=== PATIENT | male | born 1975 | race Caucasian/White ===

== ENCOUNTER 2025-06-25 10:06 | Outpatient (AMB) | payer OTHER, SELFPAY | END 2025-06-25 10:17 | disposition home or self-care (01) | LOC: HO.HMGAL 10:06 | PROVIDERS: PCP Internal Medicine; Visit Provider Registered Nurse Emergency | DX: J30.89 Other allergic rhinitis (principal) | CPT/HCPCS: 95117; 95165 ==

== ENCOUNTER 2025-07-16 14:13 | Outpatient (AMB) | payer OTHER, SELFPAY | END 2025-07-16 14:16 | disposition home or self-care (01) | LOC: HO.HMGAL 14:13 | PROVIDERS: PCP Internal Medicine; Visit Provider Registered Nurse Emergency | DX: J30.89 Other allergic rhinitis (principal) | CPT/HCPCS: 95117; 95165 ==

== ENCOUNTER 2025-09-03 11:37 | Outpatient (AMB) | payer OTHER, SELFPAY | END 2025-09-03 11:38 | disposition home or self-care (01) | LOC: HO.HMGAL 11:37 | PROVIDERS: PCP Internal Medicine; Visit Provider Registered Nurse Emergency | DX: J30.89 Other allergic rhinitis (principal) | CPT/HCPCS: 95117; 95165 ==